=== PATIENT | male | born 1960 | race African-American/Black ===

== ENCOUNTER 2016-08-15 10:22 | Emergency (ER) | payer SELFPAY ==
[~2016-08-15] VITALS: Ht 172.7 cm; Wt 64.0 kg
[2016-08-15 10:51] LABS: GLUCOSE,POINT OF CARE 68 MG/DL (70-110)
[2016-08-15 16:46] VITALS: BP 129/81
== END 2016-08-15 17:26 | disposition home or self-care (01) ==
LOC: EDBD 10:26 → EMS 10:26
DX: T51.91XA Toxic effect of unspecified alcohol, accidental (unintentional), initial encounter (principal); F17.200 Nicotine dependence, unspecified, uncomplicated; Y92.89 Other specified places as the place of occurrence of the external cause
CPT/HCPCS: 36415; 82948; 82962; 99283; G0480